=== PATIENT | female | born 1985 | race Caucasian/White ===

== ENCOUNTER 2018-07-14 08:51 | Emergency (ER) | payer MEDICAID, SELFPAY ==
[2018-07-14 08:57] VITALS: BP 128/99; PULSE 93; RESP 20; TEMP 37.2; O2SAT 98
--- NOTE | 2018-07-14 09:28 | ED.GENADUL ---
Disposition Clinical Impression: Suicidal ideations Disposition: STILL A PATIENT Condition: Serious Medical Decision Making - Lab Data Laboratory Tests 07/14/18 07/14/18 07/14/18 09:15 09:15 09:46 WBC RBC Hgb Hct MCV MCH MCHC RDW Plt Count MPV Immature Gran % Neutrophils % Lymphocytes % Monocytes % Eosinophils % Basophils % Absolute Neutrophils Absolute Lymphocytes Absolute Monocytes Absolute Eosinophils Absolute Basophils Sodium 136 Potassium 3.3 L Chloride 104 Carbon Dioxide 21.3 Anion Gap 10.7 BUN 11 Creatinine 0.66 Estimated GFR/1.73 m2 >= 60.00 Glucose 106 H Calcium 9.1 Total Bilirubin 0.6 AST 12 L ALT 18 Alkaline Phosphatase 83 Total Protein 8.2 Albumin 3.9 TSH Urine Color Yellow Urine Clarity Cloudy Urine pH 5.5 Ur Specific [place] >= 1.030 H Urine Protein 30 H Urine Ketones Trace H Urine Blood Small H Urine Nitrite Negative Urine Bilirubin Negative Urine Urobilinogen 0.2 Ur Leukocyte Esterase Moderate H Urine RBC 20-50 H Urine WBC >50 Ur Epithelial Cells Moderate Urine Crystals Negative Urine Bacteria Moderate Urine Casts Negative Urine Mucus Negative Urine Other Few renal Ur Culture Indicated? No/sq. contamination Urine Glucose Negative Salicylates Urine Opiates Screen Negative Urine Methadone Screen Negative Acetaminophen Ur Barbiturates Screen Negative Ur Tricyclics Screen Negative Ur Amphetamines Screen Negative U Benzodiazepines Scrn Negative Urine Cocaine Screen Positive Ur THC Screen Positive Ethyl Alcohol < 3.0 07/14/18 07/14/18 07/14/18 09:46 09:46 09:46 WBC 8.97 RBC 4.55 Hgb 14.0 Hct 40.9 MCV 89.9 MCH 30.8 MCHC 34.2 RDW 12.5 Plt Count 179 MPV 10.4 Immature Gran % 0.3 Neutrophils % 74.7 Lymphocytes % 15.8 Monocytes % 8.8 Eosinophils % 0.2 Basophils % 0.2 Absolute Neutrophils 6.69 Absolute Lymphocytes 1.42 Absolute Monocytes 0.79 H Absolute Eosinophils 0.02 Absolute Basophils 0.02 Sodium Potassium Chloride Carbon Dioxide Anion Gap BUN Creatinine Estimated GFR/1.73 m2 Glucose Calcium Total Bilirubin AST ALT Alkaline Phosphatase Total Protein Albumin TSH 1.88 Urine Color Urine Clarity Urine pH Ur Specific [place] Urine Protein Urine Ketones Urine Blood Urine Nitrite Urine Bilirubin Urine Urobilinogen Ur Leukocyte Esterase Urine RBC Urine WBC Ur Epithelial Cells Urine Crystals Urine Bacteria Urine Casts Urine Mucus Urine Other Ur Culture Indicated? Urine Glucose Salicylates 11.5 Urine Opiates Screen Urine Methadone Screen Acetaminophen < 2 L Ur Barbiturates Screen Ur Tricyclics Screen Ur Amphetamines Screen U Benzodiazepines Scrn Urine Cocaine Screen Ur THC Screen Ethyl Alcohol - Medical Decision Making 10:40 -- 32-year-old female with history of depression and IV drug use, here with suicidality after attempting to overdose on cocaine last night. Patient is cooperative and currently feels safe here in the emergency department. Labs reviewed: mild hypokalemia, will correct with oral potassium. UA contaminated and no urinary symptoms noted. Will repeat UA. Patient is medically cleared for mental health evaluation. Patient will require inpatient psychiatric treatment. 10:55 -- Patient now noting history of of herpes vaginalis -patient has had outbreaks in the past and notes she thinks she has an outbreak coming on now. She typically does not take any antivirals for this and she does not have insurance coverage. I will start Valtrex. 11:30 --spoke with mental health sample shoe inspector and reworker who notes plan is to transfer patient [facility], awaiting confirmation of bed availability at [facility], case is currently under review. 14:25 --I called [facility] to request update: Currently do not have any beds available, nursing reviewing the case. Repeat UA reviewed - consistent with likelky herpes. 14:50 --[facility] has no beds to accept the patient in transfer -possibly will have beds tomorrow. [facility] I called and spoke with Dr. Reddy who will accept the patient request bridging orders be placed to the floor. 20:00 --case was discussed with care management and nursing and unfortunately no inpatient bed capability this evening. Plan to hold in the emergency department. 21:09 --patient now noting that she has left flank pain, increased urinary frequency and also vaginal discharge. 21:45 -- Pelvic exam performed: patient with heavy green/yellow discharge and strawberry appearance to cervix. no fb. no CMT. no mucosal lesion. Will send GC/chlam and wet mount. Will treat for GC/chlam/trichomonas. Consider TOA - will request pelvic ultrasound prior to psych transfer in AM. Patient is not medically clear. Care signed out to Dr. Alberto. History of Present Illness - General Chief complaint: PsychEval Stated complaint: EVAL Time Seen by Provider: 07/14/18 09:01 Source: patient, RN notes reviewed Mode of arrival: ambulatory Limitations: no limitations - History of Present Illness Initial comments: 32-year-old female with history of depression, drug use, presents with chief complaint of depression. Depression is severe. Constant. No modifiers. Patient attempted overdose on IV cocaine last night. Patient continues to have severe depression now. She has thoughts of killing herself. She is specific life stressors including loss of her son to DCF custody 6 months ago, recently being kicked out of her home by her boyfriend, currently homeless, lacks transportation and unable to keep work. Patient denies homicidality. No hallucinations. - Related Data Unknown [No Known Home Meds] 08/09/16 Allergies Allergy/AdvReac Type Severity Reaction Status Date / Time No Known Allergies Allergy Unverified 07/14/18 09:00 Review of Systems Constitutional: denies: chills, fever Cardiovascular: denies: chest pain Psychiatric: depression, suicidal thoughts. denies: auditory hallucinations, visual hallucinations, homicidal thoughts Comment: All other systems reviewed and negative Past Medical History - Past Medical History Medical history: no medical history Psychiatric history: depression - Social History Alcohol use: occasionally Drug use: cocaine, opiates Living Situation: other (Homeless) General Exam - General Limitations: no limitations General appearance: alert, anxious - Eye Eye exam: Absent: scleral icterus, conjunctival injection - ENT ENT exam: Present: mucous membranes moist - Neck Neck exam: Present: normal inspection. Absent: thyromegaly - Respiratory Respiratory exam: Present: normal lung sounds bilaterally. Absent: wheezes, rales, rhonchi - Cardiovascular Cardiovascular Exam: Present: regular rate, normal rhythm, normal heart sounds - GI/Abdominal GI/Abdominal exam: Present: soft, normal bowel sounds. Absent: distended, tenderness, guarding, rebound, rigid - Extremities Exam Extremities exam: Absent: pedal edema - Neurological Exam Neurological exam: Present: alert. Absent: altered - Psychiatric Psychiatric exam: Present: depressed, anxious, suicidal ideation. Absent: manic, homicidal ideation - Skin Skin exam: Present: warm, dry, intact Course Vital Signs - 24 hr 07/14/18 08:57 Temperature 37.2 C Pulse 93 H Respiratory 20 Rate Blood Pressure 128/99 Pulse Oximetry 98
[2018-07-14 09:29] LABS: Bilirubin Negative (Negative); Blood Small (Negative); Clarity Cloudy; Glucose Negative (Negative); Ketones Trace mg/dL (Negative); Leukocyte Esterase Moderate (Negative); Nitrite Negative (Negative); Specific Gravity >= 1.030 (1.005-1.025); Urobilinogen 0.2 EU/dL (Up TO 0.2); pH 5.5 (5-8)
[2018-07-14 09:39] LABS: *AMPHETAMINES SCREEN URINE Negative (Negative); *BARBITURATES SCREEN URINE Negative (Negative); *BENZODIAZEPINES SCREEN URINE Negative (Negative); Cannabinoids THC POSITIVE (Negative); Cocaine Screen,Urine POSITIVE (Negative); METHADONE URINE SCREEN Negative (Negative); OPIATES URINE SCREEN Negative (Negative)
[2018-07-14 09:42] LABS: Tricyclic Antidepressants Negative (Negative)
[2018-07-14 09:47] LABS: WBC >50 HPF (0-5)
[2018-07-14 09:48] LABS: Bacteria Moderate HPF (Negative); C & S Indicated? No/Sq. Contamination; Casts Negative LPF (Negative); Crystals Negative HPF (Negative); Epithelial Cells Moderate HPF (Negative); Mucus Negative (Negative); Other Cells Few Renal (Negative); RBC 20-50 (0-2)
[2018-07-14 10:02] LABS: Abs Immature Grans 0.03 k/cumm (0.0-0.09); Absolute Basophil Count 0.02 k/cumm (0.0-0.2); Absolute Eosinophil Count 0.02 k/cumm (0.0-0.7); Absolute Lymphocyte Count 1.42 k/cumm (1.2-3.4); Absolute Monocyte Count 0.79 k/cumm (0.11-0.7); Absolute Neutrophil Count 6.69 k/cumm (1.2-6.7); Basophils % 0.2; Eosinophils % 0.2; HCT 40.9 % (36.0-46.0); Immature Grans % 0.3; Lymphocytes % 15.8; Mean Corp. HGB Concentration 34.2 g/dL (32.0-36.0); Mean Corpuscular Hemoglobin 30.8 pg (27.0-33.0); Mean Corpuscular Volume 89.9 fL (80-95); Mean Platelet Volume 10.4 fL (8.0-11.0); Monocytes % 8.8; Neutrophils % 74.7; Platelet Count 179 x1000/uL (130-400); RBC 4.55 m/cumm (4.00-5.20); RBC Distribution Width 12.5 % (11.7-14.6); White Blood Cell Count 8.97 k/cumm (4.4-10.8)
[2018-07-14 10:16] LABS: Salicylate 11.5 mg/dL (2.8-20.0)
[2018-07-14 10:17] LABS: ALT 18 U/L (12-78); AST 12 U/L (15-37); Acetaminophen < 2 ug/mL (10-30); Albumin 3.9 g/dL (3.4-5.0); Alkaline Phosphatase 83 U/L (46-116); Anion Gap 10.7 mmol/L (3-11); BUN 11 mg/dL (7-18); Bilirubin, Total 0.6 mg/dL (0.2-1.0); CO2 21.3 mmol/L (21.0-32.0); CREATININE 0.66 mg/dL (0.55-1.02); Calcium 9.1 mg/dL (8.5-10.1); Chloride 104 mmol/L (98-107); Glucose 106 mg/dL (70-100); Potassium 3.3 mmol/L (3.5-5.1); Sodium 136 mmol/L (136-145); Total Protein 8.2 g/dL (6.4-8.2)
[2018-07-14 10:19] LABS: TSH (W/Ref FT4) 1.88 uIU/mL (0.358-3.74)
--- NOTE | 2018-07-14 10:21 | ERMH_ITS ---
Presenting issue: *How did they arrive here at ER and why did they come: Patient arrived via ambulance after she tried to commit suicide by overdosing on cocaine. Precipitating Factors: *Assessment of Safety SI / HI- (Address delusions if pertaining to the SI/ HI) Patient is actively suicidal but denies any homicidal ideations as well as the presence of delusions. Disposition: *Behavior: The patient is currently laying on the hospital bed but sat up to speak with this policy writer typist *Eye Contact: The patient make eye contact when appropriate *Mood: Sad *Affect: Tearful *Appetite: Patient states that she has not eaten in days due to a lack of appetite *Sleep (trouble falling/staying asleep): Patient states that she has not been able to sleep Plan: (please elaborate and include that physician is consulted with plan and/ or placement): A referral is being sent to [facility] for both mental health treatment as well as substance abuse treatment. Provisional Diagnosis:(only if required by physician): [] AXIS 5 Case Handover: Done with ED nurse (name): [] Date & Time [] Huddle: done with ED staff (for boarding clients): [] Yes [] No Date /Time [] Referral for Case management: Has phone call for introduction been made [] Yes [] No Referral in EMR: Done and sent? [] Yes [] NO Clinicians Name and title and Signature: [Aletha Landers - [facility] Emergency Clinician] Make sure that you are photocopying and submitting this to [facility] records dept.to be scanned into chart
[2018-07-14 10:31] LABS: ETHANOL BLOOD < 3.0 mg/dL (<3)
--- NOTE | 2018-07-14 10:46 | CMPROGNOTE_ITS ---
Care Management Progress Note 07/14-Taylor presents to the ED this am for suicidal ideation, drug relapse. Stated she tried to overdose on cocaine. Taylor reports to nursing that her boyfriend kicked her out, she lost her job, and her kids are in DCF custody. Dr. Klein reports that patient is tearful and in need of help. [facility] collection systems worker has been called in to screen patient. Aletha from [facility] is here at this time. Once Aletha is done with the screening, huddle will be called and a care plan will be formulated. Dr. Klein does not feel the need for a one on one sitter with Taylor. Please see provider and nursing notes.
[2018-07-14] MEDS: Potassium Chloride 10 MEQ TABCR 20 MEQ PO (10:53)
[2018-07-14] MEDS: valACYclovir 500 MG TAB PO ×2 (11:11→19:43)
[2018-07-14 11:50] LABS: Bilirubin Negative (Negative); Blood Trace-intact (Negative); Clarity Clear; Glucose Negative (Negative); Ketones 15 mg/dL (Negative); Leukocyte Esterase Small (Negative); Nitrite Negative (Negative); Specific Gravity >= 1.030 (1.005-1.025); Urobilinogen 0.2 EU/dL (Up TO 0.2); pH 5.5 (5-8)
--- NOTE | 2018-07-14 11:52 | CMPROGNOTE_ITS ---
Care Management Progress Note 07/14-Aletha from [facility] has screened the patient. Aletha has faxed referral to [facility] and currently waiting for response from [facility]. Discussion with Dr. Klein. Standard plan of care for Taylor. Did not have a huddle as mental health had to leave so it was a discussion with provider. Care Plan Taylor Isela 07/14/18 Voluntary Admission 1. Suicidal Precautions 2. Patient to be in paper clothing 3. No personal belongings in room 4. Finger foods only, may have metal spoon, nursing to account for post meals 5. May have supervised phone privileges 6. Visitors at patient discretion 7. Comfort bath system for personal hygiene 8. Supervised bathroom privileges 9. May have crayons, paper, and activities (if appropriate) from the Mental Health Activity Cart in ED. 10. Per Dr. Klein, patient does not need a one on one sitter Please adhere to this care plan. Any changes, you must have a huddle and a new care plan must be written. Any questions or issues, please call [facility] long lines operator Rn Hemodialysis Charge [phone], and [facility] long lines operator antique auto museum maintenance worker [phone].
[2018-07-14 12:40] LABS: Bacteria Moderate HPF (Negative); C & S Indicated? Yes; Casts Negative LPF (Negative); Crystals Negative HPF (Negative); Epithelial Cells Few HPF (Negative); Mucus Negative (Negative); Other Cells Moderate Renal (Negative); WBC 20-50 HPF (0-5)
--- NOTE | 2018-07-14 14:56 | PDOC.ERCMPRO ---
Date of Service: 07/14/18 Time of Service: 14:56 Care Management Progress Note CM received notification from Gisela, ER ALBERTO, that Taylor is being admitted to the Med/Surg floor. Gisela states that Dr. Reddy has requested one on one supervision in order for patient to come to the med/surg floor. Safety plan has been established with patient, and care team, to adhere to patient goals, identify restrictions based on behavioral status, address nutrition, and determine allowed personal belongings, tools for hygiene and personal care. Determine level of activity including ambulation, level of supervision, visitors, and determine privileges based on behaviors and level of engagement by pt. Safety Plan Taylor Isela 07/14/18 Voluntary Admission 1. Suicidal Precautions 2. Patient to be in paper clothing 3. No personal belongings in room 4. May have paper cups, plates, finger foods as well as a metal spoon with which to eat meals. [facility] staff will be responsible for accounting of utensils after meals. 5. May have supervised phone privileges 6. Visitors at patient discretion 7. Comfort bath system for personal hygiene 8. Supervised bathroom privileges 9. May have crayons, paper, and activities (if appropriate) from the Mental Health Activity Cart in ED. 10. Will remain in room under direct supervision of one-on-one staff at all times provided by ALISIA, APARTMENT LEASING CONSULTANT fruit sorter. 11. May have television if available 12. Follow [facility] Management of the Admitted Behavioral Health Patient policy. Patient is currently voluntarily at [facility] and seeking inpatient admission when a bed becomes available. [facility] Frontline Tricot Knitter will continue seeking placement. Please contact the Spline Rolling Machine Job Setter Material Damage Appraiser ([phone]) and [facility] Tricot Knitter ([phone]) for any needed changes in the Safety Plan. Safety plan has been provided to interdepartmental care team including Clinical Coordinator , Nursing Vein Pumper.
--- NOTE | 2018-07-14 15:06 | CMPROGNOTE_ITS ---
Date of Service: 07/14/18 Time of Service: 14:56 Care Management Progress Note CM received notification from Gisela, ER ALBERTO, that Taylor is being admitted to the Med/Surg floor. Gisela states that Dr. Reddy has requested one on one supervision in order for patient to come to the med/surg floor. Safety plan has been established with patient, and care team, to adhere to patient goals, identify restrictions based on behavioral status, address nutrition, and determine allowed personal belongings, tools for hygiene and personal care. Determine level of activity including ambulation, level of supervision, visitors, and determine privileges based on behaviors and level of engagement by pt. Safety Plan Taylor Isela 07/14/18 Voluntary Admission 1. Suicidal Precautions 2. Patient to be in paper clothing 3. No personal belongings in room 4. May have paper cups, plates, finger foods as well as a metal spoon with which to eat meals. [facility] staff will be responsible for accounting of utensils after meals. 5. May have supervised phone privileges 6. Visitors at patient discretion 7. Comfort bath system for personal hygiene 8. Supervised bathroom privileges 9. May have crayons, paper, and activities (if appropriate) from the Mental Health Activity Cart in ED. 10. Will remain in room under direct supervision of one-on-one staff at all times provided by ALISIA, INSULATOR APPRENTICE screw supervisor. 11. May have television if available 12. Follow [facility] Management of the Admitted Behavioral Health Patient policy. Patient is currently voluntarily at [facility] and seeking inpatient admission when a bed becomes available. [facility] Frontline Director Of Valuation will continue seeking placement. Please contact the Acoustical Tile Drill Press Operator Block Engraver ([phone]) and [facility] Director Of Valuation ([phone]) for any needed changes in the Safety Plan. Safety plan has been provided to interdepartmental care team including Clinical Coordinator , Nursing Sales Route Driver Helper.
--- NOTE | 2018-07-14 15:19 | PDOC.HP_ITS ---
Date of Service: 07/14/18 History of Present Illness - History of Present Illness Chief Complaint: suicidal attempt History of Present Illness: This is a 32-year-old female patient who presented to the emergency department this morning for evaluation of suicidal ideation. She did attempt to kill herself last night with IV cocaine. Currently homeless, unemployed, 6 months ago lost her son to [facility], and was thrown out of the apartment she was sharing with her boyfriend. She has been accepted at [facility] for a voluntary inpatient psychiatric admission but there are no beds available. Hospitalist services was contacted and she will be admitted to the medical surgical unit while awaiting an inpatient psychiatric bed. She does have a history of vaginal herpes and does feel she is beginning an outbreak. She received Valtrex in the emergency department. Review of Systems - Medications/Allergies Allergies/Adverse Reactions: Allergies Allergy/AdvReac Type Severity Reaction Status Date / Time No Known Allergies Allergy Unverified 07/14/18 09:00 Medications: Current Medications IV Miscellaneous Supplies () 1 each IV DIRECTED [facility] IV Miscellaneous Supplies () 1 each IV DIRECTED [facility] Sodium Chloride (Saline Flush 10 Ml Syringe) 0 ml IVP PRN PRN Sodium Chloride (Saline Flush 10 Ml Syringe) 0 ml IVP PRN PRN Objective - Exam Vitals and I&O: Vital Signs Temp 37.2 C 07/14/18 08:57 Pulse 93 H 07/14/18 08:57 Resp 20 07/14/18 08:57 BP 128/99 07/14/18 08:57 Pulse Ox 98 07/14/18 08:57 Intake & Output 07/13/18 07/14/18 07/14/18 23:59 11:59 23:59 Weight 90.718 kg Results - Laboratory Data Result Diagrams: 07/14/18 09:46 07/14/18 09:46 Laboratory Results: Laboratory Tests 07/14/18 07/14/18 07/14/18 09:15 09:15 09:46 WBC RBC Hgb Hct MCV MCH MCHC RDW Plt Count MPV Immature Gran % Neutrophils % Lymphocytes % Monocytes % Eosinophils % Basophils % Absolute Neutrophils Absolute Lymphocytes Absolute Monocytes Absolute Eosinophils Absolute Basophils Sodium 136 Potassium 3.3 L Chloride 104 Carbon Dioxide 21.3 Anion Gap 10.7 BUN 11 Creatinine 0.66 Estimated GFR/1.73 m2 >= 60.00 Glucose 106 H Calcium 9.1 Total Bilirubin 0.6 AST 12 L ALT 18 Alkaline Phosphatase 83 Total Protein 8.2 Albumin 3.9 TSH Urine Color Yellow Urine Clarity Cloudy Urine pH 5.5 Ur Specific [employer] >= 1.030 H Urine Protein 30 H Urine Ketones Trace H Urine Blood Small H Urine Nitrite Negative Urine Bilirubin Negative Urine Urobilinogen 0.2 Ur Leukocyte Esterase Moderate H Urine RBC 20-50 H Urine WBC >50 Ur Epithelial Cells Moderate Urine Crystals Negative Urine Bacteria Moderate Urine Casts Negative Urine Mucus Negative Urine Other Few renal Ur Culture Indicated? No/sq. contamination Urine Glucose Negative Salicylates Urine Opiates Screen Negative Urine Methadone Screen Negative Acetaminophen Ur Barbiturates Screen Negative Ur Tricyclics Screen Negative Ur Amphetamines Screen Negative U Benzodiazepines Scrn Negative Urine Cocaine Screen Positive Ur THC Screen Positive Ethyl Alcohol < 3.0 07/14/18 07/14/18 07/14/18 09:46 09:46 09:46 WBC 8.97 RBC 4.55 Hgb 14.0 Hct 40.9 MCV 89.9 MCH 30.8 MCHC 34.2 RDW 12.5 Plt Count 179 MPV 10.4 Immature Gran % 0.3 Neutrophils % 74.7 Lymphocytes % 15.8 Monocytes % 8.8 Eosinophils % 0.2 Basophils % 0.2 Absolute Neutrophils 6.69 Absolute Lymphocytes 1.42 Absolute Monocytes 0.79 H Absolute Eosinophils 0.02 Absolute Basophils 0.02 Sodium Potassium Chloride Carbon Dioxide Anion Gap BUN Creatinine Estimated GFR/1.73 m2 Glucose Calcium Total Bilirubin AST ALT Alkaline Phosphatase Total Protein Albumin TSH 1.88 Urine Color Urine Clarity Urine pH Ur Specific [employer] Urine Protein Urine Ketones Urine Blood Urine Nitrite Urine Bilirubin Urine Urobilinogen Ur Leukocyte Esterase Urine RBC Urine WBC Ur Epithelial Cells Urine Crystals Urine Bacteria Urine Casts Urine Mucus Urine Other Ur Culture Indicated? Urine Glucose Salicylates 11.5 Urine Opiates Screen Urine Methadone Screen Acetaminophen < 2 L Ur Barbiturates Screen Ur Tricyclics Screen Ur Amphetamines Screen U Benzodiazepines Scrn Urine Cocaine Screen Ur THC Screen Ethyl Alcohol 07/14/18 11:45 WBC RBC Hgb Hct MCV MCH MCHC RDW Plt Count MPV Immature Gran % Neutrophils % Lymphocytes % Monocytes % Eosinophils % Basophils % Absolute Neutrophils Absolute Lymphocytes Absolute Monocytes Absolute Eosinophils Absolute Basophils Sodium Potassium Chloride Carbon Dioxide Anion Gap BUN Creatinine Estimated GFR/1.73 m2 Glucose Calcium Total Bilirubin AST ALT Alkaline Phosphatase Total Protein Albumin TSH Urine Color Yellow Urine Clarity Clear Urine pH 5.5 Ur Specific [employer] >= 1.030 H Urine Protein 30 H Urine Ketones 15 H Urine Blood Trace-intact H Urine Nitrite Negative Urine Bilirubin Negative Urine Urobilinogen 0.2 Ur Leukocyte Esterase Small H Urine RBC 10-20 H Urine WBC 20-50 Ur Epithelial Cells Few Urine Crystals Negative Urine Bacteria Moderate Urine Casts Negative Urine Mucus Negative Urine Other Moderate renal Ur Culture Indicated? Yes Urine Glucose Negative Salicylates Urine Opiates Screen Urine Methadone Screen Acetaminophen Ur Barbiturates Screen Ur Tricyclics Screen Ur Amphetamines Screen U Benzodiazepines Scrn Urine Cocaine Screen Ur THC Screen Ethyl Alcohol
[2018-07-14] MEDS: LORazepam 1 MG TAB PO (18:29)
[2018-07-14] MEDS: Doxycycline Hyclate 100 MG CAP PO (22:11)
[2018-07-14] MEDS: metroNIDAZOLE 500 MG TAB PO (22:12)
[2018-07-14] MEDS: cefTRIAXone 250 MG VIAL IM (22:12)
--- NOTE | 2018-07-14 22:16 | ED.FU_ITS ---
Disposition Clinical Impression: Suicidal ideations, STI (sexually transmitted infection) Disposition: STILL A PATIENT Condition: Serious Medical Decision Making - Lab Data Laboratory Tests 07/14/18 07/14/18 07/14/18 09:15 09:15 09:46 WBC RBC Hgb Hct MCV MCH MCHC RDW Plt Count MPV Immature Gran % Neutrophils % Lymphocytes % Monocytes % Eosinophils % Basophils % Absolute Neutrophils Absolute Lymphocytes Absolute Monocytes Absolute Eosinophils Absolute Basophils Sodium 136 Potassium 3.3 L Chloride 104 Carbon Dioxide 21.3 Anion Gap 10.7 BUN 11 Creatinine 0.66 Estimated GFR/1.73 m2 >= 60.00 Glucose 106 H Calcium 9.1 Total Bilirubin 0.6 AST 12 L ALT 18 Alkaline Phosphatase 83 Total Protein 8.2 Albumin 3.9 TSH Urine Color Yellow Urine Clarity Cloudy Urine pH 5.5 Ur Specific [place] >= 1.030 H Urine Protein 30 H Urine Ketones Trace H Urine Blood Small H Urine Nitrite Negative Urine Bilirubin Negative Urine Urobilinogen 0.2 Ur Leukocyte Esterase Moderate H Urine RBC 20-50 H Urine WBC >50 Ur Epithelial Cells Moderate Urine Crystals Negative Urine Bacteria Moderate Urine Casts Negative Urine Mucus Negative Urine Other Few renal Ur Culture Indicated? No/sq. contamination Urine Glucose Negative Salicylates Urine Opiates Screen Negative Urine Methadone Screen Negative Acetaminophen Ur Barbiturates Screen Negative Ur Tricyclics Screen Negative Ur Amphetamines Screen Negative U Benzodiazepines Scrn Negative Urine Cocaine Screen Positive Ur THC Screen Positive Ethyl Alcohol < 3.0 07/14/18 07/14/18 07/14/18 09:46 09:46 09:46 WBC 8.97 RBC 4.55 Hgb 14.0 Hct 40.9 MCV 89.9 MCH 30.8 MCHC 34.2 RDW 12.5 Plt Count 179 MPV 10.4 Immature Gran % 0.3 Neutrophils % 74.7 Lymphocytes % 15.8 Monocytes % 8.8 Eosinophils % 0.2 Basophils % 0.2 Absolute Neutrophils 6.69 Absolute Lymphocytes 1.42 Absolute Monocytes 0.79 H Absolute Eosinophils 0.02 Absolute Basophils 0.02 Sodium Potassium Chloride Carbon Dioxide Anion Gap BUN Creatinine Estimated GFR/1.73 m2 Glucose Calcium Total Bilirubin AST ALT Alkaline Phosphatase Total Protein Albumin TSH 1.88 Urine Color Urine Clarity Urine pH Ur Specific [place] Urine Protein Urine Ketones Urine Blood Urine Nitrite Urine Bilirubin Urine Urobilinogen Ur Leukocyte Esterase Urine RBC Urine WBC Ur Epithelial Cells Urine Crystals Urine Bacteria Urine Casts Urine Mucus Urine Other Ur Culture Indicated? Urine Glucose Salicylates 11.5 Urine Opiates Screen Urine Methadone Screen Acetaminophen < 2 L Ur Barbiturates Screen Ur Tricyclics Screen Ur Amphetamines Screen U Benzodiazepines Scrn Urine Cocaine Screen Ur THC Screen Ethyl Alcohol 07/14/18 11:45 WBC RBC Hgb Hct MCV MCH MCHC RDW Plt Count MPV Immature Gran % Neutrophils % Lymphocytes % Monocytes % Eosinophils % Basophils % Absolute Neutrophils Absolute Lymphocytes Absolute Monocytes Absolute Eosinophils Absolute Basophils Sodium Potassium Chloride Carbon Dioxide Anion Gap BUN Creatinine Estimated GFR/1.73 m2 Glucose Calcium Total Bilirubin AST ALT Alkaline Phosphatase Total Protein Albumin TSH Urine Color Yellow Urine Clarity Clear Urine pH 5.5 Ur Specific [place] >= 1.030 H Urine Protein 30 H Urine Ketones 15 H Urine Blood Trace-intact H Urine Nitrite Negative Urine Bilirubin Negative Urine Urobilinogen 0.2 Ur Leukocyte Esterase Small H Urine RBC 10-20 H Urine WBC 20-50 Ur Epithelial Cells Few Urine Crystals Negative Urine Bacteria Moderate Urine Casts Negative Urine Mucus Negative Urine Other Moderate renal Ur Culture Indicated? Yes Urine Glucose Negative Salicylates Urine Opiates Screen Urine Methadone Screen Acetaminophen Ur Barbiturates Screen Ur Tricyclics Screen Ur Amphetamines Screen U Benzodiazepines Scrn Urine Cocaine Screen Ur THC Screen Ethyl Alcohol Results reviewed for labs ordered during visit: Yes - Radiology Data Radiology results: pending - Medical Decision Making Patient being held in the ED overnight pending psychiatric admission at [facility]. She will need a pelvic ultrasound to rule out tubo- ovarian abscess prior to transfer. The order has been placed by Dr. Klein. Patient has received antibiotics for treatment of STI and will need to continue for full course of treatment. I have spoken to the technicians and trades workers [facility] to be sure that this study gets done first thing in the morning. She can then be medically cleared and sent. Patient care sign over to oncoming physician, Dr. Delgado. Care Signed Out By:: Dr. Sree Klein - Continuation of Care Continuation of Care Plan: Patient is here waiting for psychiatric admission at [facility]. She has been calm and cooperative. She is being treated for an STI. She was signed out to me pending a pelvic ultrasound to be done in the morning prior to transfer for psychiatric admission to rule out TOA. Please see Dr. Klein's initial ED visit note for details.
--- NOTE | 2018-07-15 06:51 | DI.REPORT_ITS ---
SYMPTOM/DIAGNOSIS: LT ADNEXAL TENDERNESS, VAGINAL DISCHARGE PELVIC ULTRASOUND: A transabdominal and transvaginal examination was carried out. The uterus measures 8.9 cm. in length, 4 cm. in height and 5.9 cm. in width with an endometrial stripe thickness of 8 mm. A Nabothian cyst is demonstrated. There is an apparent small fibroid in the fundus of the uterus. The right ovary measures 1.8 by 2.5 by 2.4 cm. The left ovary measures 2.7 by 2.9 by 1.9 cm. A 1.3 cm. left ovarian cyst is adjacent to a complex appearing region that has no color. This may represent a collapsing cyst. A right ovarian cyst measures 1.1 by 0.7 by 0.9 cm. There is no free fluid. The kidneys are normal. SUMMARY: A small uterine fibroid is demonstrated. There are bilateral ovarian cysts and a 1.3 cm. cyst in the left ovary is demonstrated with an adjacent area of complex appearing mass which likely represents a collapsing cyst. A follow up pelvic ultrasound in 6-8 weeks is suggested for further review.
[2018-07-15] MEDS: Doxycycline Hyclate 100 MG CAP PO (08:33)
[2018-07-15] MEDS: valACYclovir 500 MG TAB PO (08:34)
--- NOTE | 2018-07-15 08:35 | ED.FU ---
Disposition Clinical Impression: Suicidal ideations, STI (sexually transmitted infection) [facility] Condition: Serious Additional Instructions: Please take doxycycline 100 mg twice daily for 14 days., Flagyl 500 mg twice daily for 14 days, and valacyclovir 1000 mg once daily for 5 days. Prescriptions: Doxycycline [Vibramycin] 100 mg PO BID 14 Days #28 cap MetroNIDAZOLE [Flagyl] 500 mg PO BID 14 Days #28 tab Valacyclovir HCl [Valacyclovir] 1,000 mg PO DAILY #5 tablet Medical Decision Making - Lab Data Laboratory Tests 07/14/18 07/14/18 07/14/18 09:15 09:15 09:46 WBC RBC Hgb Hct MCV MCH MCHC RDW Plt Count MPV Immature Gran % Neutrophils % Lymphocytes % Monocytes % Eosinophils % Basophils % Absolute Neutrophils Absolute Lymphocytes Absolute Monocytes Absolute Eosinophils Absolute Basophils Sodium 136 Potassium 3.3 L Chloride 104 Carbon Dioxide 21.3 Anion Gap 10.7 BUN 11 Creatinine 0.66 Estimated GFR/1.73 m2 >= 60.00 Glucose 106 H Calcium 9.1 Total Bilirubin 0.6 AST 12 L ALT 18 Alkaline Phosphatase 83 Total Protein 8.2 Albumin 3.9 TSH Urine Color Yellow Urine Clarity Cloudy Urine pH 5.5 Ur Specific [place] >= 1.030 H Urine Protein 30 H Urine Ketones Trace H Urine Blood Small H Urine Nitrite Negative Urine Bilirubin Negative Urine Urobilinogen 0.2 Ur Leukocyte Esterase Moderate H Urine RBC 20-50 H Urine WBC >50 Ur Epithelial Cells Moderate Urine Crystals Negative Urine Bacteria Moderate Urine Casts Negative Urine Mucus Negative Urine Other Few renal Ur Culture Indicated? No/sq. contamination Urine Glucose Negative Salicylates Urine Opiates Screen Negative Urine Methadone Screen Negative Acetaminophen Ur Barbiturates Screen Negative Ur Tricyclics Screen Negative Ur Amphetamines Screen Negative U Benzodiazepines Scrn Negative Urine Cocaine Screen Positive Ur THC Screen Positive Ethyl Alcohol < 3.0 07/14/18 07/14/18 07/14/18 09:46 09:46 09:46 WBC 8.97 RBC 4.55 Hgb 14.0 Hct 40.9 MCV 89.9 MCH 30.8 MCHC 34.2 RDW 12.5 Plt Count 179 MPV 10.4 Immature Gran % 0.3 Neutrophils % 74.7 Lymphocytes % 15.8 Monocytes % 8.8 Eosinophils % 0.2 Basophils % 0.2 Absolute Neutrophils 6.69 Absolute Lymphocytes 1.42 Absolute Monocytes 0.79 H Absolute Eosinophils 0.02 Absolute Basophils 0.02 Sodium Potassium Chloride Carbon Dioxide Anion Gap BUN Creatinine Estimated GFR/1.73 m2 Glucose Calcium Total Bilirubin AST ALT Alkaline Phosphatase Total Protein Albumin TSH 1.88 Urine Color Urine Clarity Urine pH Ur Specific [place] Urine Protein Urine Ketones Urine Blood Urine Nitrite Urine Bilirubin Urine Urobilinogen Ur Leukocyte Esterase Urine RBC Urine WBC Ur Epithelial Cells Urine Crystals Urine Bacteria Urine Casts Urine Mucus Urine Other Ur Culture Indicated? Urine Glucose Salicylates 11.5 Urine Opiates Screen Urine Methadone Screen Acetaminophen < 2 L Ur Barbiturates Screen Ur Tricyclics Screen Ur Amphetamines Screen U Benzodiazepines Scrn Urine Cocaine Screen Ur THC Screen Ethyl Alcohol 07/14/18 11:45 WBC RBC Hgb Hct MCV MCH MCHC RDW Plt Count MPV Immature Gran % Neutrophils % Lymphocytes % Monocytes % Eosinophils % Basophils % Absolute Neutrophils Absolute Lymphocytes Absolute Monocytes Absolute Eosinophils Absolute Basophils Sodium Potassium Chloride Carbon Dioxide Anion Gap BUN Creatinine Estimated GFR/1.73 m2 Glucose Calcium Total Bilirubin AST ALT Alkaline Phosphatase Total Protein Albumin TSH Urine Color Yellow Urine Clarity Clear Urine pH 5.5 Ur Specific [place] >= 1.030 H Urine Protein 30 H Urine Ketones 15 H Urine Blood Trace-intact H Urine Nitrite Negative Urine Bilirubin Negative Urine Urobilinogen 0.2 Ur Leukocyte Esterase Small H Urine RBC 10-20 H Urine WBC 20-50 Ur Epithelial Cells Few Urine Crystals Negative Urine Bacteria Moderate Urine Casts Negative Urine Mucus Negative Urine Other Moderate renal Ur Culture Indicated? Yes Urine Glucose Negative Salicylates Urine Opiates Screen Urine Methadone Screen Acetaminophen Ur Barbiturates Screen Ur Tricyclics Screen Ur Amphetamines Screen U Benzodiazepines Scrn Urine Cocaine Screen Ur THC Screen Ethyl Alcohol Care Signed Out By:: Remy - Continuation of Care Continuation of Care Plan: 8:36 AM .The patient was signed out to me by Dr. Alberto who was signed out to him by Dr. Klein. My evaluation of the patient she appears calm, and in no acute distress. The patient has evidence of gonorrhea and trichomoniasis. Dr. Klein was also concern for herpes, valacyclovir was started. Pelvic ultrasounds have resulted in per the radiologist there are no acute processes, there is a left ovarian cyst that appears to be collapsing, and I would recommend a follow-up ultrasound in 6 weeks. No other acute processes. The patient will be given a prescription for doxycycline, and Flagyl for PID, as well as a prescription for valacyclovir for recurrent herpes. We will contact [facility] as she is now medically cleared and transferred the patient when available. 9:22 AM Patient continues to appear well. We have discussed the case with Gracie Curran, the nurse practitioner at the [facility] psychiatric facility. She agrees to accept the patient. The patient will be transferred [facility] for appropriate management at the psychiatric facility.
--- NOTE | 2018-07-15 08:39 | PDOC.ERCMPRO ---
Care Management Progress Note 07/15-Called Admissions at [facility] and spoke with Janie. Janie stated that she was asking for the doc to doc to happen soon. Janie stated that once the doc to doc happened, then we could set up transport and send Taylor to them. Janie requested nurse to nurse at [phone] (ask for nursing station) once Taylor has left so they have an estimated time of arrival at [facility]. sheriff Portillo, has been notified and he is working on transport. Ann WINSLOW and Dr. Delgado aware of the above.
--- NOTE | 2018-07-15 08:45 | CMPROGNOTE_ITS ---
Care Management Progress Note 07/15-Called Admissions at [facility] and spoke with Janie. Janie stated that she was asking for the doc to doc to happen soon. Janie stated that once the doc to doc happened, then we could set up transport and send Taylor to them. Janie requested nurse to nurse at [phone] (ask for nursing station) once Taylor has left so they have an estimated time of arrival at [facility]. sheriff Portillo, has been notified and he is working on transport. Ann WINSLOW and Dr. Delgado aware of the above.
[2018-07-15] MEDS: metroNIDAZOLE 500 MG TAB PO (08:56)
--- NOTE | 2018-07-15 09:26 | NUR.NOTE ---
Nursing Note: pt has been easy to car for. ate breakfast, took am meds. states she wants to talk to mental health. She is dying for a cigarette and wants to do something on outpatient basis. relayed to Dr Delgado.
[2018-07-15 09:48] VITALS: BP 112/68; PULSE 63; RESP 16; TEMP 36.7; O2SAT 100
[2018-07-15 10:20] VITALS: BP 112/68; PULSE 63; RESP 16; TEMP 36.7; O2SAT 100
[2018-07-16 13:53] LABS: Chlamydia Result Negative; GC Result Negative; Specimen Description CERVIX
--- NOTE | 2018-07-16 14:13 | NUR.NOTE ---
Nursing Note: Faxed to [facility] the urine culture result on this patient. . Lilo Caba.
== END 2018-07-15 10:19 | disposition short-term general hospital (02) ==
PROVIDERS: Student in an Organized Health Care Education/Training Program; Emergency Provider Student in an Organized Health Care Education/Training Program; PCP Nurse Practitioner Adult Health
DX: T40.5X2A Poisoning by cocaine, intentional self-harm, initial encounter (principal); F32.9 Major depressive disorder, single episode, unspecified; F14.10 Cocaine abuse, uncomplicated; R45.851 Suicidal ideations; E87.6 Hypokalemia; A60.04 Herpesviral vulvovaginitis; A59.01 Trichomonal vulvovaginitis; N76.0 Acute vaginitis; B96.89 Other specified bacterial agents as the cause of diseases classified elsewhere; Z75.1 Person awaiting admission to adequate facility elsewhere; Z59.0 Homelessness; Z63.5 Disruption of family by separation and divorce
CPT/HCPCS: 36415; 80053; 80307; 81025; 87077; 87491; 87591; 96372; 99285; 76830; 76856; 80320; 80329; 81003; 81015; 84443; 85025; 87086; 87186; 87480; 87510; 87660; J0696

== ENCOUNTER 2018-11-16 10:09 | Emergency (ER) | payer MEDICAID, SELFPAY ==
[2018-11-16 10:30] LABS: Bilirubin Negative (Negative); Blood Trace-intact (Negative); Clarity Sl Cloudy; Glucose Negative (Negative); Ketones Negative (Negative); Leukocyte Esterase Small (Negative); Nitrite Negative (Negative); Specific Gravity 1.015 (1.005-1.025); Urobilinogen 0.2 EU/dL (Up TO 0.2); pH 7.5 (5-8)
--- NOTE | 2018-11-16 10:46 | W.ED.GENAD ---
Discharge Plan Disposition Patient Disposition: HOME Condition: Good Discharge Details Chief Complaint: Urinary Clinical Impression: UTI (urinary tract infection) Primary Care Provider: LARRY RALPH ED Provider: Toni Delgado Home Meds and New Rx's Prescriptions: New cephalexin [Keflex] 500 mg capsule 500 mg PO QID 7 Days Qty: 28 RF: 0 No Action valacyclovir 1,000 MG tablet 1,000 mg PO DAILY Qty: 5 RF: 0 Discharge Instructions Instructions: Urinary Tract Infection in Women (ED) Additional Instructions: Please take the antibiotic as directed. If you notice any worsening of your symptoms, or any new symptoms such as vomiting, diarrhea, fever, chills, shortness of breath, chest pain, numbness, weakness, or fainting , please return immediately to the emergency department for reevaluation. Please follow up with your primary care provider as soon as possible for reassessment and reevaluation. As always, it was a pleasure participating in your medical care today. Referrals: LARRY RALPH [Primary Care Provider] - Discharge Data Discharge Date/Time-TO BE ENTERED AT DEPARTURE: 11/16/18 10:56 Medical Decision Making This is a pleasant 33-year-old female who presents with signs and symptoms clinically consistent with a urinary tract infection. She has had mild burning and increase in urinary frequency. She has no red flags of diabetes, vaginal discharge, recent STDs, new sexual partners, flank pain or tenderness, fever or chills. Patient will be prescribed an antibiotic. Urinalysis does show evidence of mild to moderate urinary tract infection. Signs and symptoms are not consistent with PID, pyelonephritis, or urolithiasis. Discussed red flags which to return and the patient understands. I have extensively reviewed the treatment plan and discharge instructions with the patient. I have addressed all patient concerns at this time. The patient was made aware of what symptoms to monitor for that would warrant a return to the emergency department. Discussed the plan with the patient, they demonstrate verbal understanding and agreement with our assessment and plan at this time. HPI General Date/Time Provider Initiated Documentation: 11/16/18 10:39. HPI Narrative: This is a very pleasant 33-year-old female with a past medical history of herpes who takes valacyclovir for outbreaks presents today for evaluation of dysuria, burning, increased urinary frequency for the last 3 days. The patient did take [id number] Azo, but had no improvement of her symptoms with this. She denies any systemic symptoms of fever, chills, or significant flank pain. She denies any hematuria, nausea, vomiting, or diarrhea. Patient does have a history of STDs but her last episode of STDs was 3 times daily which was diagnosed greater than 5 months ago. Since then she has had no vaginal discharge, no new sexual contacts, and regularly uses protection. The patient denies any vaginal disc discharge, burning, or irritation from the vagina. Patient denies any other modifying factors. Patient denies any recent surgeries, IV or illicit drug use, or pertinent family history. She denies any history of kidney stones. Related Data Home Medications Medication Instructions Recorded Confirmed valacyclovir 1,000 mg PO DAILY #5 tablet 07/15/18 11/16/18 cephalexin [Keflex] 500 mg PO QID 7 Days #28 cap 11/16/18 Previous Rx's Medication Instructions Recorded valacyclovir 1,000 mg PO DAILY #5 tablet 07/15/18 cephalexin [Keflex] 500 mg PO QID 7 Days #28 cap 11/16/18 Allergies Allergy/AdvReac Type Severity Reaction Status Date / Time No Known Allergies Allergy Unverified 11/16/18 10:18 General Stated Complaint: Urinary DANGELO: 5 Review of Systems Review of Systems All systems reviewed & are unremarkable except as noted in HPI and below PFSH Social History Smoking/Tobacco Use Status: Current every day Exam Narrative Exam Narrative: 1.Const: Well-nourished, Well-developed, appearing stated age 2.Eyes: PERRL, no conjunctival injection, and symmetrical lids. 3.ENT: Atraumatic external nose and ears. Moist MM. Neck: Symmetric, trachea midline, No thyromegaly. 4.CVS: +S1/S2, No murmurs or gallops. Peripheral pulses 2+ and equal in all extremities. Brisk capillary refill in all extremities. 5.RESP: Unlabored respiratory effort. Clear to auscultation bilaterally. No wheezes rales or rhonchi 6.GI: Soft, Nontender/Nondistended, No hepatosplenomegaly. No guarding or rebound. No evidence of significant flank or CVA tenderness. 7.MSK: Normocephalic/Atraumatic, Extremities w/o deformity or ttp No cyanosis or clubbing, Normal movement of all extremities 8.Skin: Warm, Dry. No rashes or lesions. 9.Neuro: director medical economics II-XII grossly intact. Sensation grossly intact, no focal neurologic deficits. 10.Psych: (AAO) x3. Appropriate mood and affect Course Respiratory Effort Non-Labored 11/16/18 10:17 Pain Level 4 11/16/18 10:17 Lab/Test Results Lab/Test Results: POC- Test(urine) Negative
[2018-11-16 10:48] LABS: Bacteria Rare HPF (Negative); Casts Negative LPF (Negative); Crystals Negative HPF (Negative); Epithelial Cells Rare HPF (Negative); Mucus Negative (Negative); RBC 0-2 (0-2)
[2018-11-16 10:49] LABS: C & S Indicated? Yes
== END 2018-11-16 10:56 | disposition home or self-care (01) ==
PROVIDERS: Emergency Provider Student in an Organized Health Care Education/Training Program; PCP Nurse Practitioner Adult Health
DX: N39.0 Urinary tract infection, site not specified (principal)
CPT/HCPCS: 99283; 81003; 81015; 87086

== ENCOUNTER 2025-03-28 03:24 | Outpatient (RCR) | payer MEDICAID, SELFPAY ==
[2025-03-23] MEDS: Normal Saline Flush 10 ML SYR IVP (14:42)
== END 2025-04-16 23:59 | disposition home or self-care (01) ==
LOC: INF 03:24
PROVIDERS: PCP Nurse Practitioner Adult Health; Visit Provider Nurse Practitioner Family
DX: M86.9 Osteomyelitis, unspecified (principal)
CPT/HCPCS: 96365; J0878